=== PATIENT | male | born 1960 | race Caucasian/White ===

== ENCOUNTER 2016-04-29 10:28 | Emergency (ER) | payer MEDICARE, OTHER ==
[~2016-04-29] VITALS: Ht 172.7 cm; Wt 87.0 kg
[~2016-04-29 10:28] MED LIST: ACLI1AER2 IN; ADVAI100I INH; ALBU0.086 INH; ALBU1AER INH; ALBU8I INH; ASPI325T PO; BUSP10 PO; CLIN150 PO; PRED20 PO; SPIRCAP INH; ZITH250T PO
[2016-04-29 10:37] VITALS: BP 156/91; PULSE 98; RESP 20; TEMP 98.2; O2SAT 96
[2016-04-29 10:40] VITALS: RESP 20; O2SAT 97; O2SAT 98
[2016-04-29] MEDS ORDERED: CYMB30CA PO (10:49)
[2016-04-29] MEDS ORDERED: ASPI325T PO (10:49)
[2016-04-29] MEDS ORDERED: LORA-373 PO (10:49)
[2016-04-29] MEDS ORDERED: ALBUAER3 INH (10:49)
[2016-04-29] MEDS ORDERED: SPIRCAP INH (10:49)
[2016-04-29] MEDS ORDERED: methylPREDNISolone SOD SUCC 125 MG/2 ML VIAL IVP ONE (11:00)
[2016-04-29] MEDS ORDERED: SODIUM CHLORIDE 0.9% FLUSH 5 ML FLUSH IVF PRN (11:00)
[2016-04-29] MEDS: RESP: ALBUTEROL 2.5 MG/IPRATROPIUM 0.5 MG NEB (SCH) INH (11:00)
--- NOTE | 2016-04-29 11:10 | PD ---
HPI Chief Complaint: Respiratory Distress Time Seen by Provider: 10:35 Travel History International Travel<30 days: No Contact w/Intl Traveler<30days: No Traveled to known affect area: No History of Present Illness HPI This patient complains of shortness of breath. Severity is moderate. No alleviating factors. He is chronically short of breath all the time. He has significant COPD and continues to smoke. He is nebulizer dependent. He does not use oxygen at home. He also complains of chest pain in the center sternum. He has had that every day for 3 months. He can bring it on by twisting his torso to either direction. There is no chest wall injury. He also has panic attacks. Denies history of cardiac disease. PFSH Past Medical History Hx Anticoagulant Therapy: Yes (ASA 325 MG PO) Asthma: Yes Anxiety: Yes Depression: Yes High Cholesterol: Yes COPD: Yes Coronary Artery Disease: Yes Diabetes: Yes (PT STATES DOES NOT TAKE MEDS) Patient Takes Glucophage: No Diminished Hearing: No GERD: Yes Hypertension: Yes (PT STS RESOLVED) Respiratory: Yes (SOB, COPD) Tetanus Vaccination: < 5 Years Influenza Vaccination: Yes Past Surgical History Abdominal Surgery: Yes (double hernia repair) Social History Alcohol Use: Yes (OCASSIONALLY) Tobacco Use: Yes (cigars 20/day) Substance Use: No Allergies-Medications (Allergen,Severity, Reaction): Coded Allergies: Penicillin (Verified Allergy, Intermediate, RASH, 04/29/16) Reported Meds & Prescriptions Reported Meds & Active Scripts Active Prednisone 20 Mg Tab 40 Mg PO DAILY 5 Days Reported Aspirin 325 Mg Tab 325 Mg PO DAILY Proair Hfa 8.5 GM Inh (Albuterol Sulfate) 90 Mcg/Act Aer 2 Puff INH Q4-6H PRN 108 mcg/actuation Spiriva Handihaler (Tiotropium Inh) 18 Mcg Cap 18 Mcg INH DAILY 1 capsule = 18 mcg Lorazepam 0.5 Mg Tab 0.5 Mg PO Q8H PRN Cymbalta DR (Duloxetine HCl) 30 Mg Capdr 30 Mg PO DAILY Review of Systems General / Constitutional: No: Fever Eyes: No: Visual changes HENT: Positive: Congestion, No: Headaches Cardiovascular: Positive: Chest Pain or Discomfort Respiratory: Positive: Cough, Shortness of Breath, Wheezing Gastrointestinal: No: Abdominal Pain Genitourinary: No: Dysuria Musculoskeletal: No: Pain Skin: No Rash Neurologic: No: Weakness Psychiatric: No: Depression Endocrine: No: Polydipsia Hematologic/Lymphatic: No: Easy Bruising Physical Exam Narrative GENERAL: Well-nourished, well-developed patient who is short of breath. SKIN: Warm and dry. HEAD: Atraumatic. Normocephalic. EYES: Pupils equal and round. No scleral icterus. No injection or drainage. ENT: No nasal bleeding or discharge. Mucous membranes pink and moist. NECK: Trachea midline. No JVD. CARDIOVASCULAR: Regular rate and rhythm. No murmur appreciated. RESPIRATORY: Positive accessory muscle use. Diffuse expiratory wheezing and rhonchi. Breath sounds equal bilaterally. GASTROINTESTINAL: Abdomen soft, non-tender, nondistended. Hepatic and splenic margins not palpable. MUSCULOSKELETAL: No obvious deformities. No clubbing. No cyanosis. No edema. NEUROLOGICAL: Awake and alert. No obvious cranial nerve deficits. Motor grossly within normal limits. Normal speech. PSYCHIATRIC: Appropriate mood and affect; insight and judgment poor. Data Data Last Documented VS Vital Signs Date Time Temp Pulse Resp B/P Pulse Ox O2 Delivery O2 Flow Rate FiO2 04/29/16 11:14 89 18 171/85 98 Nasal Cannula 2 04/29/16 10:37 98.2 Orders Complete Blood Count With Diff (04/29/16 10:48) Basic Metabolic Panel (Bmp) (04/29/16 10:48) Act Partial Throm Time (Ptt) (04/29/16 10:48) Prothrombin Time / Inr (Pt) (04/29/16 10:48) Ckmb (Isoenzyme) Profile (04/29/16 10:48) Troponin I (04/29/16 10:48) Iv Access Insert/Monitor (04/29/16 10:48) Ecg Monitoring (04/29/16 10:48) Oximetry (04/29/16 10:48) Oxygen Administration (04/29/16 10:48) Chest, Single Ap (04/29/16 10:48) Sodium Chloride 0.9% Flush (Ns Flush) (04/29/16 11:00) Methylprednisolone So Succ Inj (Solumedr (04/29/16 11:00) Albuterol-Ipratropium Neb (Duoneb Neb) (04/29/16 11:00) CKMB (04/29/16 10:50) CKMB% (04/29/16 10:50) Labs Laboratory Tests Test 04/29/16 10:50 White Blood Count 8.8 TH/MM3 Red Blood Count 4.97 MIL/MM3 Hemoglobin 17.0 GM/DL Hematocrit 49.7 % Mean Corpuscular Volume 100.1 FL Mean Corpuscular Hemoglobin 34.1 PG Mean Corpuscular Hemoglobin 34.1 % Concent Red Cell Distribution Width 13.9 % Platelet Count 268 TH/MM3 Mean Platelet Volume 8.4 FL Neutrophils (%) (Auto) 72.3 % Lymphocytes (%) (Auto) 13.7 % Monocytes (%) (Auto) 10.3 % Eosinophils (%) (Auto) 3.1 % Basophils (%) (Auto) 0.6 % Neutrophils # (Auto) 6.4 TH/MM3 Lymphocytes # (Auto) 1.2 TH/MM3 Monocytes # (Auto) 0.9 TH/MM3 Eosinophils # (Auto) 0.3 TH/MM3 Basophils # (Auto) 0.1 TH/MM3 CBC Comment DIFF FINAL Differential Comment Prothrombin Time 10.8 SEC Prothromb Time International 1.0 RATIO Ratio Activated Partial 27.5 SEC Thromboplast Time Sodium Level 134 MEQ/L Potassium Level 3.9 MEQ/L Chloride Level 98 MEQ/L Carbon Dioxide Level 27.3 MEQ/L Anion Gap 9 MEQ/L Blood Urea Nitrogen 8 MG/DL Creatinine 1.06 MG/DL Estimat Glomerular Filtration 73 ML/MIN Rate Random Glucose 143 MG/DL Calcium Level 9.2 MG/DL Total Creatine Kinase 240 U/L Creatine Kinase MB 4.0 NG/ML Troponin I LESS THAN 0.02 NG/ML MDM Medical Decision Making Medical Screen Exam Complete: Yes Emergency Medical Condition: Yes Medical Record Reviewed: Yes Differential Diagnosis Differential diagnosis includes COPD, asthma, pneumonia, bronchitis, CHF Narrative Course I have reviewed the patient's electronic medical record. Multiple visits for long-standing COPD/bronchitis IV placed I gave him multiple nebulizer treatments and IV Solu-Medrol I reviewed his EKG which shows sinus rhythm but no ST elevation or ectopy Extended cardiac monitoring reveals sinus rhythm in the 90s I reviewed his chest x-ray CBC is normal Metabolic profile is normal CK is normal Troponin is normal Coagulation studies are normal On reassessment he is breathing much better. His lungs are for the most part clear with just a tiny residual wheeze. I wrote him 5 days of prednisone. He has a nebulizer at home. Most importantly , he needs to quit smoking and we reviewed that in detail. His chest pain is clearly noncardiac. It is positional and is sharp stabbing pain that he can bring on by twisting his torso. He will not require stress testing. Diagnosis Primary Impression: COPD with acute exacerbation Additional Impression: Musculoskeletal chest pain Additional Instructions: The patient was advised to follow up with their physician and return if they worsen. Med/Other Pt SpecificInfo: Other Scripts Prednisone 20 Mg Tab40 Mg PO DAILY 5 Days Ref 0 Prov:Robert Yu MD 04/29/16 Disposition: 01 DISCHARGE HOME Condition: Stable Robert Yu MD Apr 29, 2016 11:10
[2016-04-29 11:11] LABS: APTT (PATIENT) 27.5 SEC (24.3-30.1); PROTHROMBIN TIME - PATIENT 10.8 SEC (9.8-11.6)
--- NOTE | 2016-04-29 11:11 | RADRPT ---
EXAM DATE/TIME: 04/29/2016 10:48 [facility] COMPARISON: CHEST SINGLE AP, April 08, 2013, 1:12. INDICATIONS : Short of breath. MEDICAL HISTORY : Chronic obstructive pulmonary disease. SURGICAL HISTORY : None. ENCOUNTER: Initial ACUITY: 3 days PAIN SCORE: 5/10 LOCATION: middle chest. FINDINGS: A single view of the chest demonstrates the lungs to be symmetrically aerated without evidence of mas s, infiltrate or effusion. The cardiomediastinal contours are unremarkable. Osseous structures are intact with the exception of an old posterior right rib fracture CONCLUSION: 1. No acute cardiopulmonary disease. Levi Ledbetter MD on April 29, 2016 at 11:09 Board Certified Radiologist. This report was verified electronically.
[2016-04-29 11:14] VITALS: BP 171/85; PULSE 89; RESP 18; O2SAT 98
[2016-04-29 11:17] LABS: ANION GAP 9 MEQ/L (5-15); BICARBONATE 27.3 MEQ/L (21.0-32.0); BLOOD UREA NITROGEN 8 MG/DL (7-18); CHLORIDE 98 MEQ/L (98-107); GLOMERULAR FILTRATION RATE 73 ML/MIN (>89); POTASSIUM 3.9 MEQ/L (3.5-5.1); SODIUM (NA) 134 MEQ/L (136-145)
[2016-04-29 11:21] LABS: CREATINE KINASE 240 U/L (39-308)
[2016-04-29 11:22] LABS: AUTOMATED NEUTROPHIL # 6.4 TH/MM3 (1.8-7.7); BASOPHIL # 0.1 TH/MM3 (0-0.2); BASOPHIL % 0.6 % (0.0-2.0); EOSINOPHIL # 0.3 TH/MM3 (0-0.4); EOSINOPHIL % 3.1 % (0.0-4.0); HEMATOCRIT 49.7 % (39.0-51.0); HEMO FLAGS DIFF FINAL; LYMPH % 13.7 % (9.0-44.0); LYMPHOCYTE # 1.2 TH/MM3 (1.0-4.8); MEAN CELL VOLUME 100.1 FL (80.0-100.0); MEAN CORPUSCULAR HEMOGLOBIN 34.1 PG (27.0-34.0); MEAN CORPUSCULAR HGB CONC 34.1 % (32.0-36.0); MONO % 10.3 % (0.0-8.0); NEUT % 72.3 % (16.0-70.0); PLATELET COUNT 268 TH/MM3 (150-450); RED BLOOD COUNT 4.97 MIL/MM3 (4.50-5.90); RED CELL DISTRIBUTION WIDTH 13.9 % (11.6-17.2); WHITE BLOOD COUNT 8.8 TH/MM3 (4.0-11.0)
[2016-04-29] MEDS ORDERED: PRED20 PO (13:32)
[2016-04-29 13:45] VITALS: BP 130/81; TEMP 98.1
--- NOTE | 2016-04-30 23:04 | EKG ---
Date Performed: 04/29/2016 Time Performed: 10:39:09 PTAGE: 55 years EKG: Sinus rhythm NORMAL ECG NO PREVIOUS TRACING DOCTOR: Miguel Peoples Interpretating Date/Time 04/30/2016 22:55:09
== END 2016-04-29 13:45 | disposition home or self-care (01) ==
LOC: NEPA 10:28
DX: J44.1 Chronic obstructive pulmonary disease with (acute) exacerbation (principal); R07.9 Chest pain, unspecified; F41.0 Panic disorder [episodic paroxysmal anxiety]; E78.00 Pure hypercholesterolemia, unspecified; E11.9 Type 2 diabetes mellitus without complications; F17.200 Nicotine dependence, unspecified, uncomplicated; Z79.82 Long term (current) use of aspirin; Z87.09 Personal history of other diseases of the respiratory system; Z86.59 Personal history of other mental and behavioral disorders; Z86.79 Personal history of other diseases of the circulatory system; Z87.19 Personal history of other diseases of the digestive system
CPT/HCPCS: 71010; 80048; 82550; 82552; 84484; 85025; 85610; 85730; 93005; 94640; 94664; 99285; J2930

== ENCOUNTER 2016-06-04 07:27 | Emergency (ER) | payer MEDICARE, OTHER ==
[~2016-06-04] VITALS: Ht 175.3 cm; Wt 85.0 kg
[~2016-06-04 07:27] MED LIST changes: -ACLI1AER2 IN; -ADVAI100I INH; -ALBU0.086 INH; -ALBU1AER INH; -ALBU8I INH; +ALBUAER3 INH; -BUSP10 PO; -CLIN150 PO; +CYMB30CA PO; +LORA-373 PO; -ZITH250T PO
[2016-06-04 07:29] VITALS: BP 144/79; PULSE 97; RESP 18; TEMP 98.2; O2SAT 98
[2016-06-04 07:31] VITALS: O2SAT 100
[2016-06-04] MEDS ORDERED: SODIUM CHLOR 0.9% 1000 ML INJ 1,000 ML IV ONE (07:39)
[2016-06-04] MEDS ORDERED: ALBU0.08 NEB (07:41)
[2016-06-04] MEDS ORDERED: GABA100C4 PO (07:41)
[2016-06-04] MEDS ORDERED: LORA-373 PO (07:41)
[2016-06-04] MEDS ORDERED: PRED20 PO (07:41)
[2016-06-04] MEDS ORDERED: MUCU400T2 PO (07:41)
[2016-06-04] MEDS ORDERED: OXYM30SP8 (07:41)
[2016-06-04] MEDS ORDERED: SPIRCAP INH (07:41)
[2016-06-04] MEDS ORDERED: AMLO5TAB2 PO (07:41)
[2016-06-04] MEDS ORDERED: SODIUM CHLORIDE 0.9% FLUSH 5 ML FLUSH IVF PRN (07:45)
[2016-06-04 08:14] LABS: AUTOMATED NEUTROPHIL # 5.9 TH/MM3 (1.8-7.7); BASOPHIL # 0.1 TH/MM3 (0-0.2); BASOPHIL % 0.7 % (0.0-2.0); EOSINOPHIL # 0.4 TH/MM3 (0-0.4); EOSINOPHIL % 5.3 % (0.0-4.0); HEMATOCRIT 44.8 % (39.0-51.0); HEMO FLAGS DIFF FINAL; LYMPH % 10.7 % (9.0-44.0); LYMPHOCYTE # 0.9 TH/MM3 (1.0-4.8); MEAN CORPUSCULAR HGB CONC 34.7 % (32.0-36.0); MONO % 9.7 % (0.0-8.0); NEUT % 73.6 % (16.0-70.0); PLATELET COUNT 237 TH/MM3 (150-450); RED BLOOD COUNT 4.57 MIL/MM3 (4.50-5.90); RED CELL DISTRIBUTION WIDTH 13.3 % (11.6-17.2)
[2016-06-04 08:26] LABS: ALKALINE PHOSPHATASE 61 U/L (45-117); TOTAL BILIRUBIN ADULT 1.2 MG/DL (0.2-1.0)
[2016-06-04 08:32] LABS: ALT (GPT) 66 U/L (12-78); ANION GAP 11 MEQ/L (5-15); AST (GOT) 51 U/L (15-37); BLOOD UREA NITROGEN 9 MG/DL (7-18); CHLORIDE 103 MEQ/L (98-107); GLOMERULAR FILTRATION RATE 87 ML/MIN (>89); MAGNESIUM 2.2 MG/DL (1.5-2.5); SODIUM (NA) 137 MEQ/L (136-145)
[2016-06-04] MEDS ORDERED: chlordiazePOXIDE 25 MG CAP PO PRN (08:45)
--- NOTE | 2016-06-04 08:57 | RADRPT ---
EXAM DATE/TIME: 06/04/2016 08:12 [facility] COMPARISON: CHEST SINGLE AP, April 29, 2016, 10:48. INDICATIONS : Shortness of breath. MEDICAL HISTORY : Hypertension. Chronic obstructive pulmonary disease. Diabetes mellitus type II. Asthma. Smoker. C AD. GERD. SURGICAL HISTORY : None. ENCOUNTER: Initial ACUITY: 2 weeks PAIN SCORE: 0/10 LOCATION: Bilateral chest FINDINGS: A single view of the chest demonstrates the lungs to be symmetrically aerated without evidence of mas s, infiltrate or effusion. There is hyperaeration of the lung mckeon bilaterally. The cardiomediastin al contours are unremarkable. Osseous structures are intact with primary degenerative changes.. CONCLUSION: 1. COPD. 2. No acute intrathoracic disease. Stable exam. Momo Fisher MD on June 04, 2016 at 8:55 Board Certified Radiologist. This report was verified electronically.
[2016-06-04 10:45] VITALS: BP 127/56; PULSE 98; RESP 16; O2SAT 96
[2016-06-04] MEDS ORDERED: CHLO25CA2 PO (11:21)
[2016-06-04 11:30] VITALS: O2SAT 98
[2016-06-04] MEDS ORDERED: RESP: ALBUTEROL 2.5 MG/IPRATROPIUM 0.5 MG NEB (SCH) NEB ONE (11:30)
--- NOTE | 2016-06-04 11:32 | PD ---
HPI Chief Complaint: Alcohol/Drug Intoxication Time Seen by Provider: 07:33 Travel History International Travel<30 days: No Contact w/Intl Traveler<30days: No Traveled to known affect area: No History of Present Illness HPI This is a 55-year-old male history of COPD, chronic alcohol abuse, who presents here stating that he wishes to go through detox. Patient states that he stopped drinking 3 days ago. He states he's started shaking about a day and a half ago. He denies any seizures. He denies any other issues. He does take lorazepam 0.5 mill grams at home but states is not helping. PFSH Past Medical History Hx Anticoagulant Therapy: Yes (ASA 325 MG PO) Asthma: Yes Anxiety: Yes Depression: Yes High Cholesterol: Yes COPD: Yes Coronary Artery Disease: Yes Diabetes: Yes Patient Takes Glucophage: Yes Diminished Hearing: No GERD: Yes Hypertension: Yes (PT STS RESOLVED) Respiratory: Yes (SOB, COPD) Past Surgical History Abdominal Surgery: Yes (double hernia repair) Social History Alcohol Use: Yes (OCASSIONALLY) Tobacco Use: Yes (cigars 20/day) Substance Use: No Allergies-Medications (Allergen,Severity, Reaction): Coded Allergies: Penicillin (Verified Allergy, Intermediate, RASH, 04/29/16) Symbicort (Verified Allergy, Unknown, 06/04/16) Reported Meds & Prescriptions Reported Meds & Active Scripts Active Chlordiazepoxide (Chlordiazepoxide HCl) 25 Mg Cap 25 Mg PO TID PRN Reported Spiriva Handihaler (Tiotropium Inh) 18 Mcg Cap 18 Mcg INH DAILY 1 capsule = 18 mcg Gabapentin 100 Mg Cap 100 Mg PO HS Prednisone 20 Mg Tab 40 Mg PO DIRECTED 40 MG twice a day x 3 days, then 20 MG daily x 3 days, then 10 MG daily x 3 days Mucus Relief (Guaifenesin) 400 Mg Tab 1 Tab PO Q4HR Nasal Kincaid (Oxymetazoline HCl) 0.05 % Spr 2 Kincaid NA DAILY Amlodipine (Amlodipine Besylate) 5 Mg Tab 5 Mg PO DAILY Lorazepam 0.5 Mg Tab 0.5 Mg PO Q6H PRN Albuterol Neb (Albuterol Sulfate) 2.5 Mg/3 Ml Neb 2.5 Mg NEB QID NEB Review of Systems Except as stated in HPI: all other systems reviewed are Neg General / Constitutional: No: Fever HENT: No: Headaches, Lightheadedness Cardiovascular: No: Chest Pain or Discomfort, Palpitations Respiratory: No: Cough, Shortness of Breath Gastrointestinal: No: Nausea, Vomiting, Abdominal Pain Genitourinary: No: Incontinence Musculoskeletal: No: Weakness, Pain Neurologic: Positive: Other (patient does report tremors), No: Headache, Sensory Disturbance Physical Exam Narrative GENERAL: Well-nourished, well-developed patient, in no acute respiratory distress. SKIN: Warm and dry. HEAD: Normocephalic/atraumatic. EYES: No injection or drainage. NECK: Supple, trachea midline. No JVD or lymphadenopathy. CARDIOVASCULAR: Regular rate and rhythm without murmurs, gallops, or rubs. Rate is in the 80s and 90s. RESPIRATORY: Breath sounds equal bilaterally. Mild expiratory wheezes heard at the upper airways. GASTROINTESTINAL: Abdomen soft, non-tender, nondistended. MUSCULOSKELETAL: No cyanosis, or edema. NEUROLOGICAL: Awake and alert. Cranial nerves II through XII intact. Motor grossly within normal limits. Five out of 5 muscle strength in all muscle groups. Normal speech. I did not appreciate any significant tremors. Data Data Last Documented VS Vital Signs Date Time Temp Pulse Resp B/P Pulse Ox O2 Delivery O2 Flow Rate FiO2 06/04/16 10:45 98 16 127/56 96 Room Air 06/04/16 07:29 98.2 Orders Complete Blood Count With Diff (06/04/16 07:39) Comprehensive Metabolic Panel (06/04/16 07:39) Chest, Single Ap (06/04/16 07:39) Iv Access Insert/Monitor (06/04/16 07:39) Ecg Monitoring (06/04/16 07:39) Oximetry (06/04/16 07:39) Sodium Chloride 0.9% Flush (Ns Flush) (06/04/16 07:45) Sodium Chlor 0.9% 1000 Ml Inj (Ns 1000 M (06/04/16 07:39) Alcohol (Ethanol) (06/04/16 07:39) Magnesium (Mg) (06/04/16 07:39) Chlordiazepoxide (Librium) (06/04/16 08:45) Albuterol-Ipratropium Neb (Duoneb Neb) (06/04/16 11:30) Labs Laboratory Tests Test 06/04/16 07:24 White Blood Count 8.0 TH/MM3 Red Blood Count 4.57 MIL/MM3 Hemoglobin 15.6 GM/DL Hematocrit 44.8 % Mean Corpuscular Volume 98.0 FL Mean Corpuscular Hemoglobin 34.0 PG Mean Corpuscular Hemoglobin 34.7 % Concent Red Cell Distribution Width 13.3 % Platelet Count 237 TH/MM3 Mean Platelet Volume 8.2 FL Neutrophils (%) (Auto) 73.6 % Lymphocytes (%) (Auto) 10.7 % Monocytes (%) (Auto) 9.7 % Eosinophils (%) (Auto) 5.3 % Basophils (%) (Auto) 0.7 % Neutrophils # (Auto) 5.9 TH/MM3 Lymphocytes # (Auto) 0.9 TH/MM3 Monocytes # (Auto) 0.8 TH/MM3 Eosinophils # (Auto) 0.4 TH/MM3 Basophils # (Auto) 0.1 TH/MM3 CBC Comment DIFF FINAL Differential Comment Sodium Level 137 MEQ/L Potassium Level 4.0 MEQ/L Chloride Level 103 MEQ/L Carbon Dioxide Level 23.0 MEQ/L Anion Gap 11 MEQ/L Blood Urea Nitrogen 9 MG/DL Creatinine 0.91 MG/DL Estimat Glomerular Filtration 87 ML/MIN Rate Random Glucose 100 MG/DL Calcium Level 9.2 MG/DL Magnesium Level 2.2 MG/DL Total Bilirubin 1.2 MG/DL Aspartate Amino Transf 51 U/L (AST/SGOT) Alanine Aminotransferase 66 U/L (ALT/SGPT) Alkaline Phosphatase 61 U/L Total Protein 7.7 GM/DL Albumin 3.8 GM/DL Ethyl Alcohol Level 6 MG/DL [facility] Medical Decision Making Medical Screen Exam Complete: Yes Emergency Medical Condition: Yes Differential Diagnosis Alcohol withdrawal versus DTs versus electrolyte abnormalities Narrative Course 55 year-old gentleman who presents requesting detox. I've informed him that we do not have a formal detox program here. He states his lorazepam at home was not covering his withdrawal symptoms. He's been given 25 mg of Librium here. We will refer him for outpatient alcohol rehabilitation. He was due for his nebulizer treatment and he did have some mild wheezing so he was given one nebulizer treatment here. I've asked case management come and give him information. He'll be given a prescription for Librium, 25 mg by mouth 3 times a day 5 days. He is instructed not to drink alcohol or take his lorazepam while taking the Librium. Diagnosis Primary Impression: Alcohol withdrawal Additional Impression: COPD (chronic obstructive pulmonary disease) Additional Instructions: Stop using tobacco products. Follow up with outpatient alcohol detox program. Scripts Chlordiazepoxide 25 Mg Cap25 Mg PO TID PRN (Anxiety) #15 CAP Ref 0 Prov:Krishna Trujillo MD 06/04/16 Disposition: 01 DISCHARGE HOME Condition: Stable Krishna Trujillo MD Jun 04, 2016 11:32
== END 2016-06-04 12:00 | disposition home or self-care (01) ==
LOC: NEPE 07:27
DX: F10.239 Alcohol dependence with withdrawal, unspecified (principal); J44.9 Chronic obstructive pulmonary disease, unspecified; J45.909 Unspecified asthma, uncomplicated; E78.00 Pure hypercholesterolemia, unspecified; E11.9 Type 2 diabetes mellitus without complications; F17.290 Nicotine dependence, other tobacco product, uncomplicated; Z79.01 Long term (current) use of anticoagulants
CPT/HCPCS: 71010; 80053; 80320; 83735; 85025; 94664; 96360; 99285; J7030

== ENCOUNTER 2016-11-07 05:01 | Emergency (ER) | payer MEDICARE, OTHER ==
[~2016-11-07] VITALS: Ht 175.3 cm; Wt 77.0 kg
[~2016-11-07 05:01] MED LIST changes: +ALBU0.08 NEB; -ALBUAER3 INH; +AMLO5TAB2 PO; -ASPI325T PO; +CHLO25CA2 PO; -CYMB30CA PO; +GABA100C4 PO; +MUCU400T2 PO; +OXYM30SP8
[2016-11-07 05:02] VITALS: BP 161/111; PULSE 102; RESP 18; TEMP 98.6; O2SAT 96
[2016-11-07] MEDS ORDERED: CHLO5CAP4 (05:21)
[2016-11-07] MEDS ORDERED: ACETAMINOPHEN 500 MG CPLT PO ONE (05:45)
[2016-11-07] MEDS ORDERED: IBUPROFEN 400 MG TAB PO ONE (05:45)
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
== END 2016-11-07 05:59 | disposition home or self-care (01) ==
LOC: NEPC 05:01
DX: S00.83XA Contusion of other part of head, initial encounter (principal); Y04.0XXA Assault by unarmed brawl or fight, initial encounter
CPT/HCPCS: 99283

== ENCOUNTER 2017-02-27 14:00 | Emergency (ER) | payer MEDICARE, OTHER ==
[~2017-02-27] VITALS: Ht 175.3 cm; Wt 76.0 kg
[~2017-02-27 14:00] MED LIST changes: -AMLO5TAB2 PO; -CHLO25CA2 PO; +CHLO5CAP4 PO; +CITA20TA4 PO; +FLUT1INH7 INH; -GABA100C4 PO; +HYDR-3133 PO; -LORA-373 PO; +LYRI150C PO; +METO25TA3 PO; -MUCU400T2 PO; -OXYM30SP8; -PRED20 PO
[2017-02-27 14:11] VITALS: BP 133/86; PULSE 84; RESP 17; TEMP 99.5
[2017-02-27] MEDS ORDERED: PRED20 PO (14:21)
--- NOTE | 2017-02-27 14:22 | PD ---
HPI Chief Complaint: alcohol intoxication Time Seen by Provider: 14:15 Travel History International Travel<30 days: No Contact w/Intl Traveler<30days: No History of Present Illness HPI 56-year-old male presents to the emergency department under [place] act by local police. According to police, they were called due to an individual waiting a gun in the air. They noticed that he was intoxicated and placed him under [place] act. According to the patient, his neighbor called him stating that she was suicidal. She had a gun at that time. He ran to another neighbor' s house to "is a Meth dealer". The other neighbor called the police. The patient does not recall having a gun in his hand. He states he had 2 bloody Aure's today. He denies any suicidal or homicidal ideations. He reports history of depression. Patient states that he is wheezing due to anxiety. He does have history of COPD. Patient has no other medical complaints. PFSH Past Medical History Hx Anticoagulant Therapy: Yes (ASA 325 MG PO) Asthma: Yes Anxiety: Yes Depression: Yes Cardiovascular Problems: Yes High Cholesterol: Yes COPD: Yes Coronary Artery Disease: Yes Diabetes: No Diminished Hearing: No GERD: Yes Hypertension: Yes (PT STS RESOLVED) Respiratory: Yes Past Surgical History Abdominal Surgery: Yes (double hernia repair) Social History Alcohol Use: Yes Tobacco Use: Yes Substance Use: No Allergies-Medications (Allergen,Severity, Reaction): Coded Allergies: penicillin G (Unverified Allergy, Intermediate, RASH, 02/06/17) budesonide (Unverified Allergy, Unknown, 02/06/17) formoterol (Unverified Allergy, Unknown, 02/06/17) Reported Meds & Prescriptions Reported Meds & Active Scripts Active Reported Breo Ellipta Inh (Fluticasone/Vilanterol) 200-25 Mcg/Act Inh 1 Puff INH DAILY Use daily at the same time. Citalopram (Citalopram Hydrobromide) 20 Mg Tab 20 Mg PO DAILY Metoprolol Tartrate 25 Mg Tab 25 Mg PO BID Hydroxyzine HCl 25 Mg Tab 25 Mg PO TID PRN Lyrica (Pregabalin) 150 Mg Cap 150 Mg PO BID Chlordiazepoxide HCl 5 Mg Capsule 25 Mg PO BID Spiriva Handihaler (Tiotropium Inh) 18 Mcg Cap 18 Mcg INH DAILY 1 capsule = 18 mcg Albuterol Neb (Albuterol Sulfate) 2.5 Mg/3 Ml Neb 2.5 Mg NEB QID NEB Review of Systems Except as stated in HPI: all other systems reviewed are Neg Physical Exam Narrative GENERAL: Well-nourished, well-developed male patient, ambulatory and in no acute distress. Patient is alert and oriented to person, place, and time and answers all questions appropriately. SKIN: Focused skin assessment warm/dry. HEAD: Normocephalic. Atraumatic. EYES: No scleral icterus. No injection or drainage. NECK: Supple, trachea midline. No JVD or lymphadenopathy. CARDIOVASCULAR: Regular rate and rhythm without murmurs, gallops, or rubs. RESPIRATORY: Breath sounds equal bilaterally. No accessory muscle use. Patient has expiratory wheezes noted throughout. GASTROINTESTINAL: Abdomen soft, non-tender, nondistended. MUSCULOSKELETAL: No cyanosis, or edema. BACK: Nontender without obvious deformity. No CVA tenderness. Data Data Orders Orders Prednisone (Deltasone) (02/27/17 14:30) Duoneb Q 15 Min X 3 Doses (02/27/17 14:30) MDM Medical Decision Making Medical Screen Exam Complete: Yes Emergency Medical Condition: Yes Medical Record Reviewed: Yes Differential Diagnosis alcohol intoxication vs. alcohol abuse vs. copd exacerbation Narrative Course 56-year-old male presents to the emergency Department under [facility] act by local police. Patient reports wheezing, but has no other medical complaints. Patient is given DuoNeb 3, prednisone 40 mg by mouth. Patient is alert and oriented answers all questions appropriately. He'll be allowed to rest in the emergency department until clinically sober. The patient was discharged in stable condition with instructions, including return instructions and follow up instructions. Diagnosis Primary Impression: Alcohol intoxication Qualified Codes: F10.920 - Alcohol use, unspecified with intoxication, uncomplicated Additional Impression: COPD (chronic obstructive pulmonary disease) Qualified Codes: J44.9 - Chronic obstructive pulmonary disease, unspecified Referrals: Primary Care Physician [facility] Patient Instructions: Alcohol Intoxication (ED), COPD (Chronic Obstructive Pulmonary Disease) (ED) Additional Instructions: Drink alcohol in moderation Take prednisone as directed. Start this tomorrow. Follow-up with your primary care physician. Return to the emergency department for any acute worsening of symptoms. Med/Other Pt SpecificInfo: Prescription(s) given Scripts Prednisone (Prednisone) 20 Mg Tab 40 MG PO DAILY for 4 Days, #8 TAB 0 Refills Take 40 mg (2 tablets) daily for 5 days Prov: Erin Hardwick 02/27/17 Disposition: 01 DISCHARGE HOME Condition: Stable Erin Hardwick Feb 27, 2017 14:22
[2017-02-27] MEDS ORDERED: predniSONE 20 MG TAB PO ONE (14:30)
[2017-02-27] MEDS: RESP: ALBUTEROL 2.5 MG/IPRATROPIUM 0.5 MG NEB (SCH) INH ×2 (14:32→14:33)
== END 2017-02-27 16:44 | disposition home or self-care (01) ==
LOC: NEPD 14:00
DX: F10.920 Alcohol use, unspecified with intoxication, uncomplicated (principal); J44.9 Chronic obstructive pulmonary disease, unspecified; F32.9 Major depressive disorder, single episode, unspecified; J45.909 Unspecified asthma, uncomplicated; F41.9 Anxiety disorder, unspecified; E78.00 Pure hypercholesterolemia, unspecified; I25.10 Atherosclerotic heart disease of native coronary artery without angina pectoris; K21.9 Gastro-esophageal reflux disease without esophagitis; I10 Essential (primary) hypertension
CPT/HCPCS: 94640; 94664; 99283